=== PATIENT | male | born 1955 | race Caucasian/White ===

== ENCOUNTER → 2019-06-02 09:56 | Outpatient (CLI) | payer MEDICARE, BC, SELFPAY ==
--- NOTE | 2019-06-02 10:14 | XR_ITS ---
PROCEDURE: XR MULTIPLE SPINE 6+V CLINICAL INDICATION: NECK PAIN Right-sided neck pain, recent fall with injury and pain COMPARISON: CXR CHEST(2 VIEWS-NOT PORTABLE) from 05/17/2015 FINDINGS: Cervical spine: Normal alignment. There is degenerative disc disease at C6-C7 and mild degenerative disc disease at C5-C6. Facet arthritic changes are present at C4-C5 and C5-C6. Mild foraminal narrowing is present on the right at C3-C4 C4-C5 and C5-C6 and on the left at C4-C5 and C5-C6. Thoracic spine: Normal alignment. Mild multilevel degenerative disc disease there is mild wedging at T6 and T7 similar to the previous exam chest x-ray of 05/17/2015. No acute fracture or dislocation. No lytic or blastic change IMPRESSION: Cervical and thoracic spondylosis as detailed above Dictated by: Andrey Lozano MD 06/02/2019 15:32 Electronically signed by Andrey Lozano MD in [place] 06/02/2019 15:32
== END ==
PROVIDERS: PCP Family Medicine; Visit Provider Family Medicine
DX: M54.2 Cervicalgia (principal); M54.6 Pain in thoracic spine
CPT/HCPCS: 72084

== ENCOUNTER → 2021-11-29 14:29 | Outpatient (CLI) | payer MEDICARE, SELFPAY ==
--- NOTE | 2021-11-29 14:34 | XR_ITS ---
FINAL REPORT CLINICAL HISTORY: SCREENING FOR LUNG CANCER non smoker FINDINGS: Two views of the chest were obtained. The heart size and pulmonary vascularity are within normal limits. The mediastinum is normal. No acute pulmonary abnormality is identified. There is no pneumothorax. The bony thorax is intact. IMPRESSION: No active cardiopulmonary disease. Reviewed, Interpreted and Dictated by Griffin Melton III, MD Transcribed by Mar Miller Authenticated and [facility]
== END ==
PROVIDERS: PCP Nurse Practitioner Family; Visit Provider Nurse Practitioner Family
DX: Z12.2 Encounter for screening for malignant neoplasm of respiratory organs (principal)
CPT/HCPCS: 71046

== ENCOUNTER 2023-11-20 14:06 | Outpatient (CLI) | payer MEDICARE, SELFPAY ==
--- NOTE | 2023-11-20 14:11 | XR_ITS ---
FINAL REPORT CLINICAL HISTORY: MEDICARE ANNUAL WELLNESS VIST COMPARISON: 11/29/2021 FINDINGS: No acute pulmonary density is evident. There is no evidence of effusion or other pleural disease. The mediastinum has a normal appearance. The cardiac silhouette is unremarkable. IMPRESSION: Unremarkable chest exam. Reviewed, Interpreted and Dictated by Zaki Jack MD Transcribed by Mar Miller Authenticated and [facility]
== END 2023-11-20 23:59 | disposition home or self-care (01) ==
LOC: RAD 14:08
PROVIDERS: PCP Nurse Practitioner; Visit Provider Nurse Practitioner
DX: Z00.00 Encounter for general adult medical examination without abnormal findings (principal)
CPT/HCPCS: 71046

== ENCOUNTER 2024-10-02 08:52 | Outpatient (CLI) | payer MEDICARE, SELFPAY ==
--- NOTE | 2024-10-02 09:00 | US_ITS ---
FINAL REPORT CLINICAL HISTORY: Decreased Sensation of foot FINDINGS: ANKLE-BRACHIAL PRESSURE INDICES Pressure indices are as follows: RIGHT LOWER EXTREMITY: Ankle-brachial pressure index: 1.25 Comments: Normal LEFT LOWER EXTREMITY: Ankle-brachial pressure index: 1.26 Comments: Normal IMPRESSION: No evidence of significant obstructive peripheral vascular disease of the lower extremities Reviewed, Interpreted and Dictated by Addie Scott MD Transcribed by Amy Maya Authenticated and [facility]
== END 2024-10-02 23:59 | disposition home or self-care (01) ==
LOC: RT 08:53
PROVIDERS: PCP Family Medicine; Visit Provider Nurse Practitioner
DX: R20.8 Other disturbances of skin sensation (principal)
CPT/HCPCS: 93923

== ENCOUNTER 2025-04-17 08:48 | Outpatient (CLI) | payer MEDICARE, SELFPAY ==
--- OUTSIDE RECORDS SUMMARY | 2025-04-17 08:50 | XMS_ITS | Clinical Summary ---
[facility] Address [address] [place] [address] Care Team Providers Care Parts Specialist Name Role Phone Provider, No Known Primary Care Provider Unavail able Medications Sod Picosulfate-Mag Ox-Cit Acd 10-3.5-12 MG-GM -GM/160ML solution Take 320 mL by mouth Take As Directed. Please follow instructions that were mailed to your home. If you did not receive these instructions please call our office at [phone]. 320 mL Active Social History Tobacco Use Types Packs/Day Years Used Date Smoking Tobacco: Never Assessed Abuse Screen Answer Date Recorded Unsafe at Home or Work/School Not on file Feels Threatened by Someone? Not on file 02/2023 Does Anyone Keep You from Co ntacting Others or Doint Things Outside the Home? Not on file 02/07/2023 Physical Sign of Abuse Present Not on file 1 Housing Stability Answer Date Recorded Current Living Arrangements Not on file 01/28 Potentially Unsafe Housing Conditions Not on luc e 02/07/2023 Family and Community Support Answer Carter e Recorded Help with Day-to-Day Activities Not on file 02/07/2023 Lonely or Isolated Not on file 02/07/2023 Employment Answer Date Recorded Do you want help finding or keeping work or a laura b? Not on file 02/07/2023 Disabilities Answer Date Recorded Concentrating, Remembering, or Making Decisions Difficulty Not on file 02/07/2023 Doing Errands Independently Difficulty Not on fi le 02/07/2023 Education Answer Date Recorded Help with school or training? Not on file Preferred Language Not on file 02/07/2023 Sex and Gender Information Value Date Recorded Sex Assigned at Not on file Legal Sex Male 12:29 PM EDT Gender Identity Not on file Sexual Orientation Not on file Plan of Treatment Health Maintenance Due Date Last Done Comments TDAP/TD VACCINES (1 - Tdap) 07/02/1996 07/01/1996 COLOGUARD 1998 COLON CANCER SCREENING 5 YEA R SIGMOIDOSCOPY 1998 CT COLONOGRAPHY 1998 FECAL OCCULT BLOOD TEST 1998 FIT Testing (1 year) 1998 Pneumococcal Vaccine 50+ (1 of 1 - PCV) 2003 ZOSTER VACCINE (1 of 2) 2003 ANNUAL PHYSICAL 03/22/2022 INFLUENZA VACCINE 11/28/2024 01/20/2022, 02/01/2021 COVID-19 Vaccine (2024-2 6 season) 2024 01/20/2022, 09/01/2021, 02/01/2021, Additional history exists COLONOSCOPY 05/18/2032 05/18/2022, 05/18/2022 COLORECTAL CANCER SCREENING 05/18/2032 AAA SCREEN ONCE Completed 07/31/2024 HEPATITIS C SCREENING Completed 07/31/2024 Procedures Procedure Name Priority Date/Time Associated Diagnosis Comments SCANNED - COLONOSCOPY 05/18/2022 from Last 3 Months or Most Recently Relevant to Health Maintenance Results * SCANNED - COLONOSCOPY (05/18/2022) Indio Montenegro MD CHART REVIEW TABS Final Res ult from Last 3 Months or Most Recently Relevant to Health Maintenance Insurance [facility] MEDICARE ADVANTAGE Care Teams Parts Specialist Relationship Specialty Start Date End Date Provider, [place] [address] PCP - General 05/17/22
--- OUTSIDE RECORDS SUMMARY | 2025-04-17 08:50 | XMS_ITS | Clinical Summary ---
Author Organization [facility] Address [address] [place] [address] Care Team Providers Care Wire Bound Box Machine Helper Name Role Phone Brayan Giovanna Dylon LYNCH Primary Care Provider [phone] Allergies No known active allergies Medications atorvastatin (Lipitor) 20 MG tablet 3 Active senna-docusate (Radha-Colace) 8.6-50 MG tablet Take 1 tablet by mouth daily. 30 tablet 5 Active ibuprofen 200 MG tablet Take 1 tablet by mouth every 6 hours as needed for mild pain. 10 tablet 5 Active acetaminophen (Tylenol) 500 MG tablet Take 1 tablet by mouth every 6 (six) hours. 100 tablet 5 Active methocarbamol (Robaxin) 500 MG tablet Take 1 tablet by mouth in the morning and 1 tablet at noon and 1 tablet before bedtime. 20 tablet 5 Active oxyCODONE (Roxicodone) 5 MG immediate release tablet Take 1 tablet by mouth every 4 (four) hours as needed for severe pain. 5 tablet 5 Active ondansetron ODT (Zofran-ODT) 4 MG disintegrating tablet Dissolve 1 tablet on the tongue every 8 hours as needed for nausea or vomiting. 20 tablet 5 Active Active Problems Problem Noted Date Diagnosed Date Choledocholithiasis 08/01/2024 Overview (08/01/2024): Likely ERCP 4/4 Obesity (BMI 30-39.9) 08/01/2024 Overview (08/01/2024): Mild Complicates care High protein low terrence Umbilical hernia 08/01/2024 Overview (08/01/2024): Repaired with suture 07/31/24 Cholecystitis 07/31/2024 Overview (08/01/2024): POA CCY 07/31 (Bozena, Jay Jay) HLD (hyperlipidemia) 07/31/2024 Overview (07/31/2024): Home meds as able Family History Medical History Relation Name Comments Bone cancer Father Leukemia Mother Relation Name Status Comments Father Mother Social History Tobacco Use Types Packs/Day Years Used Date Smoking Tobacco: Never Passive Smoke Exposure: Never Smokeless Tobacco: Never Tobacco Cessation:Counseling Given: Not Answered Alcohol Use Standard Drinks/Week Comments No 0 (1 standard drink = 0.6 oz pur e alcohol) Humiliation, Afraid, Rape, and Kick questionnair e Answer Date Recorded Within the last year, have y ou been afraid of your partner or ex-partner? No 07/31/2024 Within the last year, have y ou been humiliated or emotionally abused in other ways by your partner or ex-partner? No Within the last year, have y ou been kicked, hit, slapped, or otherwise physically hurt by your partner or ex-partner? No 07/31/2024 Within the last year, have y ou been raped or forced to have any kind of sexual activity by your partner or ex-partner? No 07/31/2024 PHQ-2 Answer Date Recorded Patient Health Questionnaire-2 Score 0 01/02/2023 Hunger Vital Sign Answer Date Recorded Within the past 12 months, y ou worried that your food would run out before you got the money to buy more. Never true 08/01/19 Within the past 12 months, t he food you bought just didn't last and you didn't have money to get more. Never true 07/31/2024 PRAPARE - Transportation Answer Date Re corded In the past 12 months, has l ack of transportation kept you from medical appointments or from getting medications? No 06/2024 In the past 12 months, has l ack of transportation kept you from meetings, work, or from getting things needed for daily living? No 07/31/2024 Housing Stability Vital Sign Answer Carter e Recorded In the last 12 months, was t here a time when you were not able to pay the mortgage or rent on time? No 07/31/2024 Number of Times Moved in the Last Year Not on fi le 07/31/2024 At any time in the past 12 m [facility], were you homeless or living in a jail (including now)? No 07/31/2024 Utilities Answer Date Recorded In the past 12 months has th e electric, gas, oil, or water company threatened to shut off services in your home? No 07/31/2024 PHQ-2A Answer Date Recorded Patient Health Questionnaire-2 Score 0 01/02/2023 Sex and Gender Information Value Date Recorded Sex Assigned at Not on file Legal Sex Male 7:56 PM EDT Gender Identity Not on file Sexual Orientation Not on file Last Filed Vital Signs Vital Sign Reading Time Taken Comments Blood Pressure 137/79 08/01/2024 1:49 PM EDT Pulse 65 08/01/2024 1:49 PM EDT Temperature 36.9 C (98.4 F) 08/01/2024 1:49 PM EDT Respiratory Rate 13 08/01/2024 1:20 PM EDT Oxygen Saturation 93% 08/01/2024 1:49 PM EDT Inhaled Oxygen Concentration - - Weight 111 kg (244 lb) 07/31/2024 12:54 PM EDT Height 190.5 cm (6' 3 ) 07/31/2024 12:54 PM EDT Body Mass Index 30.5 07/31/2024 12:54 PM EDT Plan of Treatment Health Maintenance Due Date Last Done Comments [facility]-Medicare Annual Wellness (AWV) 1955 [facility]-/Child/Adol SDOH Screenings 1955 [facility]-Pneumococcal Vaccine: 50+ Years (1 of 2 - PCV) 1972 [facility]-DTaP,Tdap,and Td Vaccines (1 - Tdap) 07/02/1996 07/01/1996 CT Colonography 1998 Colonoscopy 1998 FIT-DNA 1998 FIT 1998 FOBT 1998 Sigmoidoscopy 1998 [facility]-Colorectal Cancer Screening 1998 [facility]-Zoster Vaccines (1 of 2) 2003 [facility]-Depression Screening 01/03/2024 01/02/2023 CRT-LRCUH-19 Vaccine ( season) 2024 02/01/2023, 01/20/2022, 09/01/2021, Additional history exists [facility]-Influenza Vaccine (#1) 12/29/202402/01, 01/20/2022, 02/01/2021, Additional history exists [facility]- SDOH Screenings 01/30/2025 [facility]-Adult SDOH Screenings 01/30/2025 07/31/2024 [facility]-RSV Vaccine: 60+ Years or (1 - 1-dose 75+ series) 2028 [facility]-Hepatitis C Screening Completed 07/31/2024 [facility]-Obesity Intervention Completed 025, 01/02/2023, 02/01/2022, Additional history exists HPV Vaccines (No Doses Required) Completed [facility]-HIB Vaccines Aged Out No longer e ligible based on patient's age to complete this topic [facility]-Hepatitis A Vaccines Aged Out No longer eligible based on patient's age to complete this topic [facility]-IPV Vaccines Aged Out No longer e ligible based on patient's age to complete this topic [facility]-Rotavirus Vaccines Aged Out No lo nger eligible based on patient's age to complete this topic Goals Goal Patient Goal Type Associated Problems Recent Progress Patient-Stated? Author Autogenerat ed Goal Care Plan Autogenerated Problem No Vik Bejarano, RN Medical Devices Implanted Type Area Flight Engineer Performance Qualified Device Identifier Shelf Expiration Date Model / Serial / Lot Knee Knee Right: Knee Procedures Procedure Name Priority Date/Time Associated Diagnosis Comments HEPATITIS C ANTIBODY - ED W/REFLEX TO HCV QUANT PCR STAT 07/31/2024 3:57 AM EDT from Last 3 Months or Most Recently Relevant to Health Maintenance Results * Hepatitis C Antibody - ED (07/31/2024 3:57 AM EDT) Hepatitis C Antibody Negative Negative 07/31/2024 5:05 AM EDT [facility] Blood Venous blood specimen / Unknown Venipuncture / Unknown 07/31/2024 3:57 AM EDT 07/31/2024 4:19 AM EDT us Christofer Zimmer MD LAB BLOOD ORDERABLES Final Resu lt [facility] [address] [place] [address] from Last 3 Months or Most Recently Relevant to Health Maintenance Additional Health Concerns Active Problems Noted Date Diagnosed Date Autogenerated Problem 07/31/[address] [place] [place] [address] MEDICARE Advance Directives * Full Code (Latest Code Status on File) Date Activated Date Inactivated Comments 07/31/2024 5:57 AM 08/01/2024 6:27 PM Care Teams Wire Bound Box Machine Helper Relationship Specialty Start Date End Date Giovanna Schmidt APRN [address] [place] [address] PCP - General 11/30/21
--- NOTE | 2025-04-17 08:53 | XR_ITS ---
FINAL REPORT CLINICAL HISTORY: SCREENING FOR LUNG CANCER, SOB, COUGH FINDINGS: CHEST 2 VIEWS PA AND LATERAL The heart is normal in size. There is an unfolded aorta. The lungs are clear. There is no pneumothorax. IMPRESSION: No acute process. Reviewed, Interpreted and Dictated by Kody Mclain MD Transcribed by Mar Miller Authenticated and [facility]
== END 2025-04-17 23:59 ==
LOC: RAD 08:49
PROVIDERS: PCP Family Medicine; Visit Provider Nurse Practitioner
DX: Z12.2 Encounter for screening for malignant neoplasm of respiratory organs (principal); R05.9 Cough, unspecified; R06.02 Shortness of breath
CPT/HCPCS: 71046